=== PATIENT | female | born 1970 | race Caucasian/White ===

== ENCOUNTER 2020-12-28 09:51 | Emergency (ER) | payer MEDICARE, MEDICAID ==
[~2020-12-28] VITALS: Ht 154.9 cm; Wt 39.5 kg
[2020-12-28] MEDS ORDERED: LISINOPRIL10 MG (10:13)
[2020-12-28] MEDS ORDERED: NORVASC 2.5 MG2.5 M1 PO (10:13)
[2020-12-28] MEDS ORDERED: CALCIUM500 MG PO (10:14)
[2020-12-28] MEDS ORDERED: OXYBUTYNIN 5 MG5 M2 PO (10:14)
[2020-12-28] MEDS ORDERED: LIPITOR10 MG PO (10:14)
[2020-12-28] MEDS ORDERED: NAPROSYN500 M1 PO (10:14)
[2020-12-28] MEDS ORDERED: OMEPRAZOLE 20 M20 M1 PO (10:14)
[2020-12-28] MEDS ORDERED: APAP W/CODEINE1 TA2 PO (12:11)
[2020-12-28 12:28] VITALS: BP 134/68
== END 2020-12-28 12:29 | disposition home or self-care (01) ==
LOC: M.ERS 09:51
DX: J02.9 Acute pharyngitis, unspecified (principal); Z20.822 Contact with and (suspected) exposure to COVID-19; Z88.1 Allergy status to other antibiotic agents; Z88.0 Allergy status to penicillin; Z79.899 Other long term (current) drug therapy